=== PATIENT | male | born 1955 | race Caucasian/White ===

== ENCOUNTER 2020-12-09 06:33 | Emergency (ER) | payer OTHER ==
[~2020-12-09] VITALS: Ht 177.8 cm; Wt 90.7 kg
[2020-12-09 06:47] LABS: BASOPHILS 0.8 % (0.0-2.0); EOSINOPHILS 2.7 % (0.0-3.0); HEMATOCRIT 35.2 % (42.0-52.0); HEMOGLOBIN 11.4 gm/dL (14.0-18.0); LYMPHOCYTES 25.3 % (24.0-44.0); MCH 27.1 pg (26.0-34.0); MCHC 32.3 g/dL (28.0-37.0); MCV 83.9 fL (80.0-100.0); MONOCYTES 12.1 % (1.0-8.0); PLATELET COUNT 107 thou/uL (150-400); POLYS 59.1 % (36.0-66.0); RBC 4.19 mil/uL (4.50-6.00); RDW 18.4 % (10.5-14.5); WBC 3.4 thou/uL (4.0-11.0)
[2020-12-09 06:55] LABS: ANION GAP 8 mmol/L (7-16); BUN 17 mg/dL (7-18); CALCIUM 8.9 mg/dL (8.5-10.1); CHLORIDE 107 mmol/L (98-107); CO2 23 mmol/L (21-32); GLUCOSE 105 mg/dL (74-106); POTASSIUM 4.9 mmol/L (3.5-5.1); SODIUM 138 mmol/L (136-145)
[2020-12-09 07:03] LABS: URINE BILIRUBIN NEGATIVE (Negative); URINE BLOOD NEGATIVE (Negative); URINE CLARITY CLEAR; URINE COLOR YELLOW; URINE GLUCOSE-RANDOM* NEGATIVE (Negative); URINE KETONES NEGATIVE (Negative); URINE LEUKOCYTES-REFLEX NEGATIVE (Negative); URINE NITRITE-REFLEX NEGATIVE (Negative); URINE PROTEIN (DIPSTICK) NEGATIVE (Negative)
[2020-12-09 07:09] LABS: ALBUMIN 3.2 g/dL (3.4-5.0); SGOT 117 U/L (15-37); SGPT 61 U/L (16-63); TOTAL BILIRUBIN 0.7 mg/dL (0.2-1.0); TOTAL PROTEIN 8.6 g/dL (6.4-8.2); TROPONIN-I <0.06 ng/mL (<0.06)
--- NOTE | 2020-12-09 10:56 | EKG ---
[address] [place] [address] ELECTROCARDIOGRAM REPORT Name: ROYA VALDEZ Room #: REG ROMY Mcintosh#: [id number] Admission: 12/09/20 Attend Phys: Discharge: Date of : 53 Report #: [id number] [facility] ED Test Date: 2020-12-09 Test Time: 06:35:57 Pat Name: ROYA VALDEZ Department: Room: Gender: M Electrical System Specialist: AM : 1955 Requested By: Katherine White Order Number: [id number] MD: Lavelle Lewis Measurements Intervals [place] Rate: 69 P: 35 SD: 189 QRS: -38 QRSD: 111 T: 36 QT: 443 QTc: 475 Interpretive Statements Sinus rhythm Left axis deviation No previous ECG available for comparison Electronically Signed On 12-09-2020 10:55:59 WASHATERIA ATTENDANT by Lavelle Lewis [email or web address] <ELECTRONICALLY SIGNED> By: Lavelle Lewis MD 12/09/20 1055 [id number] Lavelle Lewis MD /EPI
[2020-12-09 11:38] VITALS: BP 113/45
== END 2020-12-09 11:40 ==
LOC: ER 06:33
PROVIDERS: Emergency Medicine
DX: R07.9 Chest pain, unspecified (principal); K80.50 Calculus of bile duct without cholangitis or cholecystitis without obstruction; J44.9 Chronic obstructive pulmonary disease, unspecified; I10 Essential (primary) hypertension